=== PATIENT | female | born 1965 | race Caucasian/White ===

== ENCOUNTER 2016-08-27 13:40 | Emergency (ER) | payer OTHER ==
[2016-08-27 14:24] LABS: HEMATOCRIT 41.3 % (34-45); HEMOGLOBIN 13.9 g/dl (11.2-15.7); MEAN CORPUSCULAR HGB CONC 33.7 g/dl (32.0-36.0); PLATELET COUNT 299 x10_3/UL (182-369); RED BLOOD COUNT 4.49 x10_6/ul (3.9-5.2); RED CELL DISTRIBUTION WIDTH 13.9 % (11.7-14.4); WHITE BLOOD COUNT 8.2 x10_3/ml (4.0-10.0)
[2016-08-27 14:25] LABS: BLOOD UREA NITROGEN 7 mg/dL (7-18); CALCIUM 8.6 mg/dL (8.7-10.7); CARBON DIOXIDE 22 mmol/L (21-32); CREATININE 0.6 mg/dL (0.6-1.3); GLUCOSE,RANDOM 125 mg/dL (70-99); GRAN # 6.8 10_X3_UL (1.6-6.1); GRAN % 83.4 % (34.0-71.1); LYMPH # 1.1 10_X3_UL (1.2-3.7); LYMPH % 13.2 % (19.3-51.7); MIXED # 0.3 10_X3_UL (0-12); MIXED % 3.4 % (1.7-9.3); POTASSIUM 3.9 mmol/L (3.5-5.1); SODIUM 137 mmol/L (136-145)
== END 2016-08-27 15:37 | disposition home or self-care (01) ==
LOC: ER 13:40
PROVIDERS: General Practice
DX: K52.9 Noninfective gastroenteritis and colitis, unspecified (principal); J32.9 Chronic sinusitis, unspecified; H66.92 Otitis media, unspecified, left ear; R42 Dizziness and giddiness; R19.7 Diarrhea, unspecified; F41.9 Anxiety disorder, unspecified
CPT/HCPCS: 36415; 70450; 80048; 85025; 96361; 96374; 99070; 99284-25